=== PATIENT | male | born 1965 | race Caucasian/White ===

== ENCOUNTER 2017-10-13 18:30 | Emergency (ER) | payer BC ==
[2017-10-13] MEDS ORDERED: Aspirin 81 MG Tab.Chew PO ONE (18:59)
[2017-10-13] MEDS ORDERED: Nitroglycerin 0.4 MG Tab.SL SL PRN (19:09)
[2017-10-13] MEDS ORDERED: Nitroglycerin 0.4 MG Tab.SL SL ONE (19:09)
[2017-10-13] MEDS ORDERED: Sodium Chloride 0.9% 10 ML Syringe FLUSH PRN (19:22)
[2017-10-13] MEDS ORDERED: Alum Hydroxide/Mag Hydroxide 30 ML, Lidocaine 2% 15 ML PO ONE ×2 (19:28)
[2017-10-13] MEDS ORDERED: Sodium Chloride 0.9% 1,000 ML IV SCH (19:45)
--- NOTE | 2017-10-13 19:45 | EDM.PDOC ---
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 No n/v. Went to see company RN, SBP inc'd at 160-170, dec'd to 134 after sitting. Went back to work, still had same symptoms. Left work and went to [facility], BP still inc'd, EKG reported to be normal. Pt advised to come to ED. Still with "slight" chest pressure of 5/10, no change with NTG SL x 1 altho BP dec'd 163/97 to 138/81. Given NTG 324 mg chewed. Troponin inc'd, will transfer to [facility] when w/u complete. Never smoked, drinks 2 beers 2x/wk. No previous CV ds, parents both from CV ds. Says his cholesterol is "not good," does not know what it is. Here with . h/o GERD, on omeprazole 40 mg/d x 1y. Had EGD 2011. Also has chronic mid back pain from known DJD, however no radiation of CP. Here with . Reports he had a similar episode of 1h of CP on Wednesday evening 5d ago. 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 [place] better 3d ago on Sun, took Tums x 2 without benefit. The last 2 days he felt fine, until today. He left work early at 1p today, shift ends at 3p, has never left work early in past 7y. Other than today, last saw PCP 6m ago. Midsternal chest region Pain Score (Numeric/FACES): 5 - Related Data Allergies Allergy/AdvReac Type Severity Reaction Status Date / Time No Known Allergies Allergy Verified 10/13/17 18:53 Home Meds: Home Meds Aspirin [Ecotrin] 81 mg PO DAILY 10/13/17 [History] Omeprazole 40 mg PO DAILY 10/13/17 [History] Tamsulosin HCl [Tamsulosin HCl] 0.4 mg DAILY 10/13/17 [History] Past Medical History Gastrointestinal History: Reports: GERD - Past Surgical History HEENT Surgical History: Reports: Adenoidectomy, Tonsillectomy GI Surgical History: Reports: EGD Social & Family History - Tobacco Use Smoking Status *Q: Never Smoker - Alcohol Use Days Per Week of Alcohol Use: 2 Number of Drinks Per Day: 2 Total Drinks Per Week: 4 - Recreational Drug Use Recreational Drug Use: No ED ROS GENERAL - Review of Systems Review Of Systems: See Below Constitutional: Reports: Malaise, Fatigue. Denies: Fever, Chills, Night Sweats , Diaphoresis, Decreased Appetite HEENT: Reports: No Symptoms Respiratory: Reports: Shortness of Breath. Denies: Wheezing, Cough Cardiovascular: Reports: Chest Pain, Blood Pressure Problem, Lightheadedness. Denies: Palpitations Endocrine: Reports: No Symptoms GI/Abdominal: Reports: No Symptoms. Denies: Abdominal Pain, Decreased Appetite , Nausea, Vomiting : Reports: No Symptoms Musculoskeletal: Reports: No Symptoms Skin: Reports: No Symptoms Neurological: Reports: No Symptoms Psychiatric: Reports: No Symptoms Hematologic/Lymphatic: Reports: No Symptoms Immunologic: Reports: No Symptoms ED EXAM, GENERAL - Physical Exam Exam: See Below Exam Limited By: No Limitations General Appearance: Alert, WD/WN, Mild Distress, Other (alert, conversant, minimizes sxs altho appears mildly distressed, skin dry, no dyspnea) Eye Exam: Bilateral Eye: Normal Inspection, PERRL Ears: Normal External Exam Nose: Normal Inspection, Normal Mucosa, No Blood Throat/Mouth: Normal Inspection, Normal Lips, Normal Teeth, Normal Gums, Normal Oropharynx, Normal Voice, No Airway Compromise Head: Atraumatic, Normocephalic Neck: Normal Inspection, Supple, Non-Tender, Full Range of Motion Respiratory/Chest: No Respiratory Distress, Lungs Clear, Normal Breath Sounds, No Accessory Muscle Use, Chest Non-Tender Cardiovascular: Normal Peripheral Pulses, Regular Rate, Rhythm, No Edema, No Gallop, No JVD, No Murmur, No Rub GI/Abdominal: Normal Bowel Sounds, Soft, Non-Tender, No Organomegaly, No Distention, No Mass Back Exam: Normal Inspection, Full Range of Motion, NT Extremities: Normal Inspection, Normal Range of Motion, Non-Tender, Normal Capillary Refill, No Pedal Edema Neurological: Alert, Oriented, CN II-XII Intact, Normal Cognition, No Motor/ Sensory Deficits Psychiatric: Normal Affect, Normal Mood Skin Exam: Warm, Dry, Intact, Normal Color, No Rash Lymphatic: No Adenopathy Course - Vital Signs Last Recorded V/S: Last Vital Signs Temp 36.4 C 10/13/17 18:35 Pulse 57 L 10/13/17 18:35 Resp 18 10/13/17 18:35 BP 158/99 H 10/13/17 19:08 Pulse Ox 98 10/13/17 18:35 Orthostatic Blood Pressure [] 149/79 Orthostatic Blood Pressure [] 146/83 Orthostatic Blood Pressure [] 132/75 - Orders/Labs/Meds Orders: Active Orders 24 hr Category Date Time Status EKG Documentation Completion [RC] ASDIRECTED Care 10/13/17 18:59 Active Orthostatic Vital Signs [RC] ASDIRECTED Care 10/13/17 19:29 Active Chest 2V [CR] Stat Exams 10/13/17 19:13 Taken INR,PT,PROTHROMBIN TIME [COAG] Stat Lab 10/13/17 20:15 Ordered PTT,PARTIAL THROMBOPLSTIN TIME [COAG] Stat Lab 10/13/17 20:15 Ordered Heparin Sodium/0.45% NaCl [Heparin 25,000 Units in 1/2 Med 10/13/17 20:30 Ordered NS 500 ML] 25,000 units in 500 ml IV TITRATE Nitroglycerin 25 MG in D5W @ 10 MCG/MIN(250ml) Premix Med 10/13/17 20:30 Ordered Nitroglycerin/D5W [Nitroglycerin 25 MG/D5W 250 ML] 25 mg in 250 ml IV TITRATE Nitroglycerin [Nitrostat] Med 10/13/17 19:09 Active 0.4 mg SL Q5M PRN Sodium Chloride 0.9% [Normal Saline] 1,000 ml Med 10/13/17 19:45 Active IV ASDIRECTED Sodium Chloride 0.9% [Saline Flush] Med 10/13/17 19:22 Active 10 ml FLUSH ASDIRECTED PRN Peripheral IV Insertion Adult [OM.PC] Routine Oth 10/13/17 19:00 Ordered EKG 12 Lead [EK] Routine Ther 10/13/17 18:58 Ordered Medication Orders Sodium Chloride (Normal Saline) 1,000 mls @ 999 mls/hr IV ASDIRECTED IVANA Last Admin: 10/13/17 19:47 Dose: 999 mls/hr Heparin Sodium/Sodium Chloride (Heparin 25,000 Units In 1/2 Ns 500 Ml) 25,000 units in 500 mls @ 20.134 mls/hr IV TITRATE IVANA; 13.7 UNITS/KG/HR PRN Reason: Protocol Nitroglycerin/Dextrose (Nitroglycerin 25 Mg/D5w 250 Ml) 25 mg in 250 mls @ 6 mls/hr IV TITRATE IVANA; 10 MCG/MIN PRN Reason: Protocol Nitroglycerin (Nitrostat) 0.4 mg SL Q5M PRN PRN Reason: Chest Pain Last Admin: 10/13/17 19:08 Dose: 0.4 mg Sodium Chloride (Saline Flush) 10 ml FLUSH ASDIRECTED PRN PRN Reason: Keep Vein Open Labs: Laboratory Tests 10/13/17 10/13/17 10/13/17 Range/Units 19:05 19:05 19:05 WBC 7.4 (4.5-12.0) X10-3/uL RBC 5.36 (4.30-5.75) x10(6)uL Hgb 14.9 (11.5-15.5) g/dL Hct 44.9 (30.0-51.3) % MCV 83.8 (80-96) fL MCH 27.8 (27.7-33.6) pg MCHC 33.1 (32.2-35.4) g/dL RDW 13.4 (11.5-15.5) % Plt Count 257 (125-369) X10(3)uL MPV 9.0 (7.4-10.4) fL Neut % (Auto) 54.3 (46-82) % Lymph % (Auto) 36.6 (13-37) % Russell % (Auto) 7.4 (4-12) % Eos % (Auto) 1 (1.0-5.0) % Baso % (Auto) 1 (0-2) % Neut # (Auto) 4.0 (1.6-8.3) # Lymph # (Auto) 2.7 (0.6-5.0) # Russell # (Auto) 0.5 (0.0-1.3) # Eos # (Auto) 0.1 (0.0-0.8) # Baso # (Auto) 0.1 (0.0-0.2) # D-Dimer, Quantitative (100-400) ng/mL Sodium 142 (135-145) mmol/L Potassium 3.9 (3.5-5.3) mmol/L Chloride 106 (100-110) mmol/L Carbon Dioxide 26 (21-32) mmol/L BUN 22 H (7-18) mg/dL Creatinine 1.1 (0.70-1.30) mg/dL Est Cr Clr Drug Dosing 74.27 mL/min Estimated GFR (MDRD) > 60 (>60) BUN/Creatinine Ratio 20.0 (9-20) Glucose 95 (80-116) mg/dL Calcium 8.9 (8.6-10.2) mg/dL Creatine Kinase (60-160) IU/L CK-MB (CK-2) (0.5-5.0) ng/mL Troponin I 0.166 H* (<0.017-0.056) ng/mL C-Reactive Protein (0.5-0.9) mg/dL NT-Pro-B Natriuret Pep (<=125) pg/mL TSH, Ultra Sensitive (0.36-3.74) IU/mL Urine Color (YELLOW) Urine Appearance (CLEAR) Urine pH (5.0-6.5) Ur Specific Devers (1.010-1.025) Urine Protein (NEGATIVE) mg/dL Urine Glucose (UA) (NEGATIVE) mg/dL Urine Ketones (NEGATIVE) mg/dL Urine Occult Blood (NEGATIVE) Urine Nitrite (NEGATIVE) Urine Bilirubin (NEGATIVE) Urine Urobilinogen (NEGATIVE) mg/dL Ur Leukocyte Esterase (NEGATIVE) Urine RBC (0) Urine WBC (0) Ur Squamous Epith Cells (NS,R,O) Urine Bacteria (NS) 10/13/17 10/13/17 10/13/17 Range/Units 19:05 19:05 19:05 WBC (4.5-12.0) X10-3/uL RBC (4.30-5.75) x10(6)uL Hgb (11.5-15.5) g/dL Hct (30.0-51.3) % MCV (80-96) fL MCH (27.7-33.6) pg MCHC (32.2-35.4) g/dL RDW (11.5-15.5) % Plt Count (125-369) X10(3)uL MPV (7.4-10.4) fL Neut % (Auto) (46-82) % Lymph % (Auto) (13-37) % Russell % (Auto) (4-12) % Eos % (Auto) (1.0-5.0) % Baso % (Auto) (0-2) % Neut # (Auto) (1.6-8.3) # Lymph # (Auto) (0.6-5.0) # Russell # (Auto) (0.0-1.3) # Eos # (Auto) (0.0-0.8) # Baso # (Auto) (0.0-0.2) # D-Dimer, Quantitative < 100 L (100-400) ng/mL Sodium (135-145) mmol/L Potassium (3.5-5.3) mmol/L Chloride (100-110) mmol/L Carbon Dioxide (21-32) mmol/L BUN (7-18) mg/dL Creatinine (0.70-1.30) mg/dL Est Cr Clr Drug Dosing mL/min Estimated GFR (MDRD) (>60) BUN/Creatinine Ratio (9-20) Glucose (80-116) mg/dL Calcium (8.6-10.2) mg/dL Creatine Kinase 160 (60-160) IU/L CK-MB (CK-2) 1.7 (0.5-5.0) ng/mL Troponin I (<0.017-0.056) ng/mL C-Reactive Protein < 0.2 L (0.5-0.9) mg/dL NT-Pro-B Natriuret Pep (<=125) pg/mL TSH, Ultra Sensitive (0.36-3.74) IU/mL Urine Color (YELLOW) Urine Appearance (CLEAR) Urine pH (5.0-6.5) Ur Specific Devers (1.010-1.025) Urine Protein (NEGATIVE) mg/dL Urine Glucose (UA) (NEGATIVE) mg/dL Urine Ketones (NEGATIVE) mg/dL Urine Occult Blood (NEGATIVE) Urine Nitrite (NEGATIVE) Urine Bilirubin (NEGATIVE) Urine Urobilinogen (NEGATIVE) mg/dL Ur Leukocyte Esterase (NEGATIVE) Urine RBC (0) Urine WBC (0) Ur Squamous Epith Cells (NS,R,O) Urine Bacteria (NS) 10/13/17 10/13/17 10/13/17 Range/Units 19:05 19:05 19:40 WBC (4.5-12.0) X10-3/uL RBC (4.30-5.75) x10(6)uL Hgb (11.5-15.5) g/dL Hct (30.0-51.3) % MCV (80-96) fL MCH (27.7-33.6) pg MCHC (32.2-35.4) g/dL RDW (11.5-15.5) % Plt Count (125-369) X10(3)uL MPV (7.4-10.4) fL Neut % (Auto) (46-82) % Lymph % (Auto) (13-37) % Russell % (Auto) (4-12) % Eos % (Auto) (1.0-5.0) % Baso % (Auto) (0-2) % Neut # (Auto) (1.6-8.3) # Lymph # (Auto) (0.6-5.0) # Russell # (Auto) (0.0-1.3) # Eos # (Auto) (0.0-0.8) # Baso # (Auto) (0.0-0.2) # D-Dimer, Quantitative (100-400) ng/mL Sodium (135-145) mmol/L Potassium (3.5-5.3) mmol/L Chloride (100-110) mmol/L Carbon Dioxide (21-32) mmol/L BUN (7-18) mg/dL Creatinine (0.70-1.30) mg/dL Est Cr Clr Drug Dosing mL/min Estimated GFR (MDRD) (>60) BUN/Creatinine Ratio (9-20) Glucose (80-116) mg/dL Calcium (8.6-10.2) mg/dL Creatine Kinase (60-160) IU/L CK-MB (CK-2) (0.5-5.0) ng/mL Troponin I (<0.017-0.056) ng/mL C-Reactive Protein (0.5-0.9) mg/dL NT-Pro-B Natriuret Pep 39 (<=125) pg/mL TSH, Ultra Sensitive 3.84 H (0.36-3.74) IU/mL Urine Color Yellow (YELLOW) Urine Appearance Clear (CLEAR) Urine pH 6.5 (5.0-6.5) Ur Specific Devers 1.010 (1.010-1.025) Urine Protein Negative (NEGATIVE) mg/dL Urine Glucose (UA) Normal (NEGATIVE) mg/dL Urine Ketones Negative (NEGATIVE) mg/dL Urine Occult Blood Negative (NEGATIVE) Urine Nitrite Negative (NEGATIVE) Urine Bilirubin Negative (NEGATIVE) Urine Urobilinogen Normal (NEGATIVE) mg/dL Ur Leukocyte Esterase Negative (NEGATIVE) Urine RBC Not seen (0) Urine WBC 0-5 (0) Ur Squamous Epith Cells Few H (NS,R,O) Urine Bacteria Few H (NS) Meds: Medications Generic Name Dose Route Start Last Admin Trade Name Freq PRN Reason Stop Dose Admin Sodium Chloride 1,000 mls @ 999 mls/hr 10/13/17 19:45 10/13/17 19:47 Normal Saline IV 999 mls/hr ASDIRECTED IVANA Administration Heparin Sodium/Sodium Chloride 25,000 units in 500 mls @ 20.134 mls/hr 20:30 Heparin 25,000 Units In 1/2 Ns 500 Ml IV TITRATE IVANA Protocol 13.7 UNITS/KG/HR Nitroglycerin/Dextrose 25 mg in 250 mls @ 6 mls/hr 10/13/17 20:30 Nitroglycerin 25 Mg/D5w 250 Ml IV TITRATE IVANA Protocol 10 MCG/MIN Nitroglycerin 0.4 mg 10/13/17 19:09 10/13/17 19:08 Nitrostat SL 0.4 mg Q5M PRN Administration Chest Pain Sodium Chloride 10 ml 10/13/17 19:22 Saline Flush FLUSH ASDIRECTED PRN Keep Vein Open Discontinued Medications Generic Name Dose Route Start Last Admin Trade Name Freq PRN Reason Stop Dose Admin Aspirin 243 mg 10/13/17 18:59 10/13/17 19:00 Aspirin PO 10/13/17 19:00 243 mg ONETIME ONE Administration Al Hydroxide/Mg Hydroxide 30 0 ml 10/13/17 19:28 10/13/17 19:42 ml/ Lidocaine HCl 15 ml PO 10/13/17 19:29 45 ml ONETIME ONE Administration Heparin Sodium (Porcine) 4,000 units 10/13/17 20:16 Heparin Sodium IVPUSH 10/13/17 20:17 ONETIME ONE Nitroglycerin 0.4 mg 10/13/17 19:09 10/13/17 19:08 Nitrostat SL 10/13/17 19:10 Not Given ONETIME ONE - Re-Assessments/Exams Free Text/Narrative Re-Assessment/Exam: 10/13/17 20:07 CxR 2v neg, EKG neg. Still 5/10 CP after NTG SL x 1 and GI cocktail x 1. Not orthostatic, does look a little dry (dec'd turgor) and has BUN 22, being given 1 liter NS. Departure - Departure Time of Disposition: 20:29 Disposition: DC/Tfer to Hospice - Home 50 Reason for Transfer *Q: Other Condition: Good Clinical Impression: NSTEMI (non-ST elevated myocardial infarction), Elevated BUN, Mild dehydration , FH ischemic heart disease, Hyperlipidemia Referrals: Geetha Perry PA [Primary Care Provider] - Forms: ED Department Discharge - My Orders Last 24 Hours: My Active Orders 10/13/17 18:58 EKG 12 Lead [EK] Routine 10/13/17 18:59 EKG Documentation Completion [RC] ASDIRECTED 10/13/17 19:00 Peripheral IV Insertion Adult [OM.PC] Routine 10/13/17 19:09 Nitroglycerin [Nitrostat] 0.4 mg SL Q5M PRN 10/13/17 19:13 Chest 2V [CR] Stat 10/13/17 19:22 Sodium Chloride 0.9% [Saline Flush] 10 ml FLUSH ASDIRECTED PRN 10/13/17 19:29 Orthostatic Vital Signs [RC] ASDIRECTED 10/13/17 19:45 Sodium Chloride 0.9% [Normal Saline] 1,000 ml IV ASDIRECTED 10/13/17 20:15 INR,PT,PROTHROMBIN TIME [COAG] Stat PTT,PARTIAL THROMBOPLSTIN TIME [COAG] Stat 10/13/17 20:30 Heparin Sodium/0.45% NaCl [Heparin 25,000 Units in 1/2 NS 500 ML] 25,000 units in 500 ml IV TITRATE Nitroglycerin 25 MG in D5W @ 10 MCG/MIN(250ml) Premix Nitroglycerin/D5W [ Nitroglycerin 25 MG/D5W 250 ML] 25 mg in 250 ml IV TITRATE - Assessment/Plan Last 24 Hours: My Active Orders 10/13/17 18:58 EKG 12 Lead [EK] Routine 10/13/17 18:59 EKG Documentation Completion [RC] ASDIRECTED 10/13/17 19:00 Peripheral IV Insertion Adult [OM.PC] Routine 10/13/17 19:09 Nitroglycerin [Nitrostat] 0.4 mg SL Q5M PRN 10/13/17 19:13 Chest 2V [CR] Stat 10/13/17 19:22 Sodium Chloride 0.9% [Saline Flush] 10 ml FLUSH ASDIRECTED PRN 10/13/17 19:29 Orthostatic Vital Signs [RC] ASDIRECTED 10/13/17 19:45 Sodium Chloride 0.9% [Normal Saline] 1,000 ml IV ASDIRECTED 10/13/17 20:15 INR,PT,PROTHROMBIN TIME [COAG] Stat PTT,PARTIAL THROMBOPLSTIN TIME [COAG] Stat 10/13/17 20:30 Heparin Sodium/0.45% NaCl [Heparin 25,000 Units in 1/2 NS 500 ML] 25,000 units in 500 ml IV TITRATE Nitroglycerin 25 MG in D5W @ 10 MCG/MIN(250ml) Premix Nitroglycerin/D5W [ Nitroglycerin 25 MG/D5W 250 ML] 25 mg in 250 ml IV TITRATE
[2017-10-13] MEDS ORDERED: Heparin Sodium 5,000 Units/ML Vial IVPUSH ONE (20:16)
[2017-10-13] MEDS ORDERED: Heparin Sodium/0.45% NaCl 25,000 UNITS/500 ML BAG IV SCH (20:30)
[2017-10-13] MEDS ORDERED: Nitroglycerin/D5W 25 MG/250 ML BOTTLE IV SCH (20:30)
[2017-10-13] MEDS ORDERED: Heparin Sodium/D5W 25,000 UNITS/500 ML BAG IV SCH (20:45)
--- NOTE | 2017-10-15 11:06 | CR ---
INDICATION: Short of breath. CHEST: PA and lateral views of the chest 10/13/2017 - no comparisons. The heart is normal in size and shape. The aorta is tortuous with calcification in the arch minimally. Overlying EKG leads are noted. An active infiltrate or effusion was not identified. IMPRESSION: 1. No acute process. 2. ASD aorta. MTDD
== END 2017-10-13 21:16 | disposition hospice, home (50) ==
LOC: FB.ED 18:30
DX: I21.4 Non-ST elevation (NSTEMI) myocardial infarction (principal); E86.0 Dehydration; E78.5 Hyperlipidemia, unspecified; K21.9 Gastro-esophageal reflux disease without esophagitis; Z82.49 Family history of ischemic heart disease and other diseases of the circulatory system; Z79.82 Long term (current) use of aspirin; Z79.899 Other long term (current) drug therapy
CPT/HCPCS: 36415; 71046; 80048; 81001; 82550; 82553; 83880; 84443; 84484; 85025; 85379; 85610; 85730; 86140; 93005; 96361; 96365; 96375; 99285; A9270; J1644; J7040